=== PATIENT | male | born 1975 | race Caucasian/White ===

== ENCOUNTER 2016-09-29 09:28 | Emergency (ER) | payer MEDICAID ==
[~2016-09-29] VITALS: Ht 175.3 cm; Wt 66.6 kg
[2016-09-29] MEDS ORDERED: IBUPROFEN 200 MG TABLET PO ONE (10:00)
[2016-09-29 10:23] LABS: ACETAMINOPHEN 5 mcg/mL (10-30)
[2016-09-29] MEDS ORDERED: FLUO20CA19 PO (10:24)
[2016-09-29] MEDS ORDERED: TRAZ50TA18 PO (10:25)
[2016-09-29] MEDS ORDERED: BUPR-173 PO (10:25)
[2016-09-29] MEDS ORDERED: PRAZ1CAP2 PO (10:26)
[2016-09-29] MEDS ORDERED: CYAN100028 PO (10:26)
[2016-09-29 10:27] LABS: ASPARTATE AMINO TRANSFERASE 31 U/L (15-37); BLOOD UREA NITROGEN 17 mg/dL (7-18)
[2016-09-29] MEDS ORDERED: IBUPROFEN 200 MG TABLET ONE (10:37)
[2016-09-29 12:15] VITALS: BP 131/79
== END 2016-09-29 13:05 | disposition home or self-care (01) ==
LOC: ED 10:25
DX: G47.00 Insomnia, unspecified (principal); T43.295A Adverse effect of other antidepressants, initial encounter; Y92.89 Other specified places as the place of occurrence of the external cause; F17.210 Nicotine dependence, cigarettes, uncomplicated
CPT/HCPCS: 36415; 80053; 80307; 80329; 85025; 99284; G0480

== ENCOUNTER 2018-02-01 10:51 | Emergency (ER) | payer MEDICAID ==
[~2018-02-01] VITALS: Ht 172.7 cm; Wt 74.5 kg
[~2018-02-01 10:51] MED LIST: BUPR-173 PO; CYAN100028 PO; FLUO20CA19 PO; PRAZ1CAP2 PO; TRAZ-136 PO
[2018-02-01] MEDS ORDERED: LORazepam 1MG TABLET PO ONE (11:30)
[2018-02-01] MEDS ORDERED: ONDANSETRON ODT 4 MG PO ONE (11:30)
[2018-02-01] MEDS ORDERED: ONDANSETRON ODT 4 MG ONE (11:30)
[2018-02-01] MEDS ORDERED: LORazepam 1MG TABLET ONE (11:31)
[2018-02-01 12:40] LABS: MICROSCOPIC NOT IND
[2018-02-01 12:42] LABS: BASOPHILS # (AUTO) 0.05 x10^3/uL (0-0.1); BASOPHILS % (AUTO) 1 % (0-1); EOSINOPHILS # (AUTO) 0.23 x10^3/uL (0-0.4); EOSINOPHILS % (AUTO) 3 % (1-7); LYMPHOCYTES # (AUTO) 1.17 x10^3/uL (1-3.4); LYMPHOCYTES % (AUTO) 17 % (22-44); MD NO; MEAN CORPUSCULAR HEMOGLOBIN 32.2 pg (27.5-34.5); MEAN CORPUSCULAR HGB CONC 33.7 g/dL (33.2-36.2); MEAN CORPUSCULAR VOLUME 95.5 fL (81-97); MEAN PLATELET VOLUME 7.6 fL (7.4-10.4); MONOCYTES # (AUTO) 0.43 x10^3/uL (0.2-0.8); MONOCYTES % (AUTO) 6 % (2-9); NEUTROPHILS # (AUTO) 4.95 x10^3/uL (1.8-6.8); NEUTROPHILS % (AUTO) 73 % (42-75); PLATELET COUNT 274 x10^3/uL (130-400); RED BLOOD COUNT 4.37 x10^6/uL (4.38-5.82)
[2018-02-01 12:45] LABS: CULTURE INDICATED? NO
[2018-02-01 12:50] LABS: ALBUMIN 3.6 g/dL (3.4-5.0); ANION GAP 5 mmol/L (5-15); CALCIUM 8.3 mg/dL (8.5-10.1); CHLORIDE 110 mmol/L (98-107); CREATININE 1.11 mg/dL (0.7-1.3)
[2018-02-01 13:53] VITALS: BP 138/78
== END 2018-02-01 13:55 | disposition home or self-care (01) ==
LOC: ED 12:45
DX: R11.2 Nausea with vomiting, unspecified (principal); F41.1 Generalized anxiety disorder; R19.7 Diarrhea, unspecified; F32.9 Major depressive disorder, single episode, unspecified; F17.210 Nicotine dependence, cigarettes, uncomplicated
CPT/HCPCS: 36415; 80048; 81003; 82040; 85025; 99284; Q0162